=== PATIENT | female | born 1950 | race African-American/Black ===

== ENCOUNTER 2020-08-28 08:33 | Inpatient (IN) | payer OTHER ==
[2020-08-24 12:19] VITALS: BMI 26.6
--- NOTE | 2020-08-28 08:03 | HP ---
Satellite H - Chief Complaint Chief Complaint: left knee pain - Past Medical History Allergies/Adverse Reactions: Allergies Allergy/AdvReac Type Severity Reaction Status Date / Time codeine Allergy Severe Vomiting Verified 08/24/20 11:56 - Current Medications Current Medications: Home Medications Medication Instructions Recorded Albuterol Sulfate [Proair 90 mcg IH QID 08/27/20 Respiclick] Aspirin [ASA -] 81 mg PO DAILY 08/27/20 Calcium Citrate/Vitamin D3 1 each PO DAILY 08/27/20 [Calcium Citrate - Vit D Caplet] Cholecalciferol (Vitamin D3) 2,000 unit PO DAILY 08/27/20 [Vitamin D3] Docusate Sodium [Colace] 100 mg PO BID 08/27/20 Fluticasone Propionate [Flonase 15.8 ml NS DAILY 08/27/20 Allergy Relief] Fluticasone Propionate [Flovent 50 mcg IH DAILY 08/27/20 Diskus] Hydrochlorothiazide [Hctz -] 25 mg PO DAILY 08/27/20 Insulin Glargine,Hum.rec.anlog 20 unit SQ ACDIN 08/27/20 [Lantus Solostar] Insulin Lispro [Humalog] 10 unit SQ TID 08/27/20 Loratadine 10 mg PO DAILY 08/27/20 Meclizine HCl [Antivert -] 12.5 mg PO Q8H PRN 08/27/20 Pantoprazole Sodium 40 mg PO DAILY 08/27/20 Simvastatin 40 mg PO ACDIN 08/27/20 Satellite Physical Exam - Physical Examination General Appearance: Well Nourished, Well Developed, Alert & Oriented x3 ENT: Clear Lung: Normal air movement Extremities: Other (left knee- + swelling, + ttp, decr rom, nvi, xrays show grade 4 tricompartmental djd) Neurological: Intact, Alert, Oriented Satellite Impression/Plan - Impression/Plan Impression: left knee djd Operative Procedure: left jermaine tkr Date to be Performed: 08/28/20
--- OUTSIDE RECORDS SUMMARY | 2020-08-28 09:31 | XMS ---
:1950 Author Organization [facility] Support Name Relationship Address Phone UE Unavailable Unavailable Unavailable ATIF CHAHAL SON [address] [facility] [place] [address] Re-disclosure Warning The records that you are about to access may contain information from federally- assisted alcohol or drug abuse programs. If such information is present, then the following federally mandated warning applies: This information has been disclosed to you from records protected by federal confidentiality rules (42 CFR part 2). The federal rules prohibit you from making any further disclosure of this information unless further disclosure is expressly permitted by the written consent of the person to whom it pertains or as otherwise permitted by 42 CFR part 2. A general authorization for the release of medical or other information is NOT sufficient for this purpose. The Federal rules restrict any use of the information to criminally investigate or prosecute any alcohol or drug abuse patient.The records that you are about to access may contain highly sensitive health information, the redisclosure of which is protected by Article 27-F of the [facility] Public Health law. If you continue you may haveaccess to information: Regarding HIV / AIDS; Provided by facilities licensed or operated by the [facility] Office of Mental Health; or Provided by the [facility] Office for People With Developmental Disabilities. If such information is present, then the following [facility] mandated warning applies: This information has been disclosed to you from confidential records which are protected by state law. State law prohibits you from making any further disclosure of this information without the specific written consent of the person to whom it pertains, or as otherwise permitted by law. Any unauthorized further disclosure in violation of state law may result in a fine or halfway sentence or both. A general authorization for the release of medical or other information is NOT sufficient authorization for further disclosure. Insurance Providers Payer name Policy type Policy ID Covered Covered libertarian's Policy P sarita / Coverage libertarian ID relationship to Arce[employer] Inf ormation type arceo MEDICARE [id number] SP [id number] MEDICAID [id number] SP [id number] MEDICARE [id number] SP [id number] Results ID Date Data Source [id number] 08/24/2020 10:42:00 AM EDT [facility] Name Value Range Interpretation Description Data Sup porting Code Source(s) Document(s ) SARS [facility] coronavirus 2 RNA This lab was ordered by MICHEAL teixeira [facility] and reported by [facility]. ID Date Data Source [id number] 05/28/2020 12:00:00 AM EDT [facility] Name Value Range Interpretation Code Description Data Leann rce(s) Supporting Document(s ) SARS-CoV-2 [facility] RNA Resp Ql BETZY+probe This lab was ordered by [facility] and reported by [facility]. Procedure
[2020-08-28] MEDS: CELECOXIB 200 MG CAPSULE PO ONE (10:45)
[2020-08-28] MEDS ORDERED: SODIUM CHLORIDE 0.9% P/F 10 ML VIAL IJ ONE (11:20)
[2020-08-28] MEDS ORDERED: MIDAZOLAM HCL 2 MG/2 ML SINGLE DOSE VIAL ONE (11:20)
[2020-08-28] MEDS ORDERED: BUPIVACAINE LIPOSOME/PF (EXPAREL) 266 MG/20 ML VIAL ONE (11:20)
[2020-08-28] MEDS ORDERED: ceFAZolin SODIUM 1 GM VIAL ONE ×2 (11:58→12:51)
[2020-08-28] MEDS ORDERED: VANCOMYCIN 1,000 MG VIAL (RESTRICTED TO ID ONLY) ONE (11:58)
[2020-08-28] MEDS ORDERED: TRANEXAMIC ACID 1000 MG/10 ML VIAL IVPUSH ONE (12:00)
[2020-08-28] MEDS ORDERED: CEFAZOLIN 2 GM in DEXTROSE 5%-WATER - 50 ML IVPB ONE (12:00)
[2020-08-28] MEDS ORDERED: PROPOFOL 20 ML ONE (12:14)
[2020-08-28] MEDS ORDERED: MECLIZINE HCL 12.5 MG TABLET PO PRN (12:36)
[2020-08-28] MEDS ORDERED: ONDANSETRON 4 MG/2 ML VIAL IVPUSH PRN (12:37)
[2020-08-28] MEDS ORDERED: MAG HYDROX/AL HYDROX/SIMETH 30 ML UNIT-DOSE CUP PO PRN (12:37)
[2020-08-28] MEDS ORDERED: MAGNESIUM HYDROX 2400MG/30ML ORAL SUSPENSION 30 ML CUP PO PRN (12:37)
[2020-08-28] MEDS ORDERED: LACTATED RINGERS SOLUTION 1,000 ML IV SCH (12:45)
[2020-08-28] MEDS ORDERED: TRANEXAMIC ACID 1000 MG/10 ML VIAL ONE ×2 (12:51)
[2020-08-28] MEDS ORDERED: ALBUTEROL SO4 HFA INHALER IH PRN (13:04)
[2020-08-28] MEDS ORDERED: PATIENT'S OWN MEDICATION (NON-FORMULARY) (Insulin Lispro [Humalog] 10 UNIT) SQ SCH (14:00)
[2020-08-28] MEDS ORDERED: PATIENT'S OWN MEDICATION (NON-FORMULARY) (Albuterol Sulfate [Proair Respiclick] 90 MCG) IH SCH (14:00)
[2020-08-28] MEDS ORDERED: VANCOMYCIN 1,000 MG VIAL (RESTRICTED TO ID ONLY) IVPB ONE (14:03)
--- NOTE | 2020-08-28 14:30 | OP ---
Operative Note - Note: Operative Date: 08/28/20 (leana) Pre-Operative Diagnosis: left knee djd Operation: left jermaine tkr Post-Operative Diagnosis: Same as Pre-op Surgeon: Marquis Garland Pure Culture Operator: Tavares Salomon Anesthesia: Spinal, Local Specimens Removed: bone fragments Estimated Blood Loss (mls): 100
[2020-08-28] MEDS ORDERED: ONDANSETRON 4 MG/2 ML VIAL ONE (15:05)
[2020-08-28] MEDS: ACETAMINOPHEN 325 MG TABLET (FP) PO SCH ×2 (16:00→21:11)
[2020-08-28] MEDS: oxyCODONE HCL 5 MG TABLET PO PRN ×2 (16:00→21:11)
[2020-08-28] MEDS ORDERED: oxyCODONE HCL 5 MG TABLET ONE (16:01)
[2020-08-28] MEDS ORDERED: ACETAMINOPHEN 325 MG TABLET (FP) ONE (16:01)
[2020-08-28] MEDS ORDERED: PATIENT'S OWN MEDICATION (NON-FORMULARY) (Insulin Glargine,Hum.Rec.Anlog [Lantus Solostar] SQ SCH (16:30)
[2020-08-28] MEDS ORDERED: PATIENT'S OWN MEDICATION (NON-FORMULARY) (Simvastatin [Simvastatin] 40 MG) PO SCH (16:30)
[2020-08-28] MEDS: INSULIN (NOVOLOG) ASPART 100 UNITS/ML 10ML VIAL SQ SCH (17:04)
--- NOTE | 2020-08-28 17:37 | SPEC ---
DATE OF OPERATION: 08/28/2020 PREOPERATIVE DIAGNOSIS: Degenerative joint disease, left knee. POSTOPERATIVE DIAGNOSIS: Degenerative joint disease, left knee. PROCEDURE: Left total knee replacement with robotic-assisted navigation (Makoplasty). SURGICAL ATTENDING: Marquis Garland MD. ANESTHESIA: Regional and spinal. CLOSURE: Triathlon knee system with a 4 femur, 4 tibia, a 9 polyethylene, 32 patella, number 1 Vicryl fascia, 0 and 2-0 subcutaneous, 3-0 Monocryl subcuticular with skin glue for skin, 4-0 undyed Vicryl for pin site. ESTIMATED BLOOD LOSS: Less than 100 mL. COMPLICATIONS: None. CONDITION: To recovery room in stable condition. DESCRIPTION OF OPERATIVE PROCEDURE: Patient was taken to the operating room on August 28, 2020. Regional and general anesthesia was administered by the anesthesiologist. IV Kefzol and TXA were administered by the anesthesiologist. Well-padded pneumatic tourniquet was placed on the proximal thigh. The left lower extremity was prepped and draped in the usual sterile fashion. The leg was exsanguinated with an Esmarch bandage, and tourniquet was inflated to 275 mmHg. A 12 to 15-cm longitudinal midline incision was incised while centered over the patella. The dissection was carried down to the level of the extensor mechanism with sufficient flaps made to adequately perform the procedure. A medial parapatellar arthrotomy was then performed. We made a cuff of tissue on the patella for later closure. The patella was inverted, the knee was flexed up. The fat pad was excised. The subperiosteal dissection was on the anteromedial proximal tibia around towards the direction of the MCL. The ACL and the PCL were transected and debrided. The meniscal remnants of the medial and lateral meniscus were debrided and removed. This allowed the knee to be able to "be brought forward." The checkpoints were malleted into the tibia and into the femur. Two threaded pins were drilled anteroposteriorly proximal to the knee through the previous incision, through the anterior cortex, then just engaging the posterior cortex. To these pins was assembled the femoral navigation array. One handbreadth below the tibial tubercle, 2 stab incisions were used to drill 2 threaded pins in parallel fashion into the tibia, again through the anterior cortex and just engaging the posterior cortex. To these pins was fastened the tibial arrays. The knee was then registered with the navigation device with center of rotation of the hip, medial and lateral malleoli, both checkpoints, and multiple points on both the femur and the tibia to ensure excellent registration. The navigation device was directed off the "top of the bubbles" on both the femur and the tibia. The navigation passed within less than 0.5 mm to plan. The knee was then thoroughly inspected to remove all osteophytes both medially, laterally, and on the femur and the tibia, and whatever osteophytes were available for dissection. The knee was then taken to extension and to flexion, and stressed in both varus and valgus to assess flexion gaps. The virtual position of the components on the navigation device were then manipulated to optimize the position and to ensure equal gaps in both flexion and extension, and both medially and laterally. The robot was then brought into the field and was registered. The cuts were then made both on the femur and on the tibia as to plan. All osteophytes posteriorly were then removed as well. The gaps were then measured again in flexion and extension to be equal in both flexion and extension and medial and laterally. The femoral notch was then made, as we were doing a posterior stabilizing component, with the appropriate sized box. Trial reduction of the femur achieved excellent [id number] fit. A tibial baseplate of appropriate polyethylene thickness was "floated in the knee." It was ensured to be in the excellent position by navigation devices and was pinned in place. The knee was taken through a range of motion, and found to have excellent stability throughout flexion and extension. The patella was calibrated for thickness and osteotomized down to the appropriate level. The appropriate lollipop was used to drill the lug holes in the patella and the trial button was applied. The knee was taken through a range of motion and found to have excellent tracking of the patella, and patella from full extension to full flexion. Trial components were removed, the keel was punched and drilled, and a sclerotic bone on the tibia was drilled to help with cement interdigitation. The knee was thoroughly irrigated with the pulse antibiotic gate person. The real components were then cemented in using monitored arrangement cement techniques with antibiotic cement, and pressurization and extension. After the cement was hardened, the knee was thoroughly inspected to remove any extra cement. The real polyethylene component was then clipped into place. Range of motion, stability, and tracking were as described earlier. The checkpoints and the pins were removed. The knee was thoroughly irrigated with antibiotic irrigation. Vancomycin powder was placed into the knee for antibiotic prophylaxis. The medial parapatellar arthrotomy was then closed using number 1 Vicryl interrupted suture. After closure of the deep layer, the knee was taken through a range of motion, and found to have excellent stability of the patella with no dislocation and no undue tension on the repair. The subcutaneous was pulse antibiotic irrigated, and was then closed with 2-0 Vicryl, 3-0 Monocryl subcuticular with the skin glue for the skin. The distal tibial pin site was irrigated thoroughly as well and then closed with 4-0 undyed Vicryl. A sterile Aquacel dressing was applied, followed by a Paz dressing. Tourniquet was deflated. Total tourniquet time was approximately 75 minutes. No complications. Patient was awakened from anesthesia and transferred to recovery room in stable condition. Postoperative x-rays revealed excellent position of the components. Salima [id number]
--- NOTE | 2020-08-28 18:07 | CONSULT ---
Consult - Past Medical History ORNAMENTAL IRON ERECTOR: Yes: CVA Cardio/Vascular: Yes: HTN, Hyperlipdemia Endocrine: Yes: Diabetes Mellitus - Smoking History Smoking history: Never smoked Have you smoked in the past 12 months: No Home Medications - Allergies Allergies/Adverse Reactions: Allergies Allergy/AdvReac Type Severity Reaction Status Date / Time codeine Allergy Severe Vomiting Verified 08/24/20 11:56 - Home Medications Home Medications: Ambulatory Orders Albuterol Sulfate [Proair Respiclick] 90 mcg IH QID 08/27/20 Aspirin [ASA -] 81 mg PO DAILY 08/27/20 Calcium Citrate/Vitamin D3 [Calcium Citrate - Vit D Caplet] 1 each PO DAILY 08/27/20 Cholecalciferol (Vitamin D3) [Vitamin D3] 2,000 unit PO DAILY 08/27/20 Docusate Sodium [Colace] 100 mg PO BID 08/27/20 Fluticasone Propionate [Flonase Allergy Relief] 15.8 ml NS DAILY 08/27/20 Fluticasone Propionate [Flovent Diskus] 50 mcg IH DAILY 08/27/20 Hydrochlorothiazide [Hctz -] 25 mg PO DAILY 08/27/20 Insulin Glargine,Hum.rec.anlog [Lantus Solostar] 20 unit SQ ACDIN 08/27/20 Insulin Lispro [Humalog] 10 unit SQ TID 08/27/20 Loratadine 10 mg PO DAILY 08/27/20 Meclizine HCl [Antivert -] 12.5 mg PO Q8H PRN 08/27/20 Pantoprazole Sodium 40 mg PO DAILY 08/27/20 Simvastatin 40 mg PO ACDIN 08/27/20 Review of Systems - Review of Systems Neck: reports: No Symptoms Cardiovascular: reports: No Symptoms Respiratory: reports: No Symptoms Genitourinary: reports: No Symptoms Musculoskeletal: reports: Joint Pain Physical Exam Vital Signs: Vital Signs Temperature 98.5 F 08/28/20 16:37 Pulse Rate 90 08/28/20 16:37 Respiratory Rate 18 08/28/20 16:37 Blood Pressure 155/78 08/28/20 16:37 O2 Sat by Pulse Oximetry (%) 100 08/28/20 16:37 Cardiovascular: Yes: Regular Rate and Rhythm Respiratory: Yes: Regular, CTA Bilaterally Gastrointestinal: Yes: Normal Bowel Sounds, Soft. No: Tenderness Edema: No Problem List - Problems (1) S/P knee surgery Assessment/Plan: Operative Date: 08/28/20 (leana) Pre-Operative Diagnosis: left knee djd Operation: left jermaine tkr Post-Operative Diagnosis: Same as Pre-op Surgeon: Marquis Garland Western Felt Hat Blocker: Tavares Salomon (2) HTN (hypertension) Assessment/Plan: controlled monitor trends Code(s): I10 - ESSENTIAL (PRIMARY) HYPERTENSION (3) Diabetes Assessment/Plan: continue with insulin ss Code(s): E11.9 - TYPE 2 DIABETES MELLITUS WITHOUT COMPLICATIONS (4) HLD (hyperlipidemia) Assessment/Plan: same meds Code(s): E78.5 - HYPERLIPIDEMIA, UNSPECIFIED
[2020-08-28] MEDS: CEFAZOLIN 2 GM/D5W 2 GM/50 ML ML IVPB SCH (21:10)
[2020-08-28] MEDS: DOCUSATE SODIUM 100 MG CAPSULE (FP) PO SCH (21:11)
[2020-08-29] MEDS: MOMETASONE FUROATE 110 MCG/IH INHALER IH SCH ×2 (00:13→21:37)
[2020-08-29] MEDS ORDERED: PT OWN MED DRAWER 7, Y5N ONE ×3 (00:21→11:54)
[2020-08-29] MEDS: ACETAMINOPHEN 325 MG TABLET (FP) PO SCH ×4 (01:39→20:36)
[2020-08-29] MEDS: CEFAZOLIN 2 GM/D5W 2 GM/50 ML ML IVPB SCH (03:18)
[2020-08-29] MEDS: oxyCODONE HCL 5 MG TABLET PO PRN ×5 (06:40→21:00)
[2020-08-29] MEDS: CELECOXIB 200 MG CAPSULE PO ONE (07:20)
[2020-08-29] MEDS: INSULIN (LEVEMIR) 100 UNITS/ML UNITS SQ SCH ×2 (07:21→16:22)
[2020-08-29] MEDS: ATORVASTATIN CA 20 MG TABLET (FP) PO SCH ×2 (07:21→16:22)
[2020-08-29] MEDS: ASPIRIN 325 MG TABLET PO SCH (07:59)
[2020-08-29] MEDS: INSULIN (NOVOLOG) ASPART 100 UNITS/ML 10ML VIAL SQ SCH ×3 (08:01→16:22)
[2020-08-29 08:20] LABS: HEMATOCRIT 40.9 % (32.4-45.2); HEMOGLOBIN 14.2 GM/dl (10.7-15.3); MCH 32.6 pg (25.7-33.7); MCHC 34.6 g/dl (32.0-36.0); MEAN CELL VOLUME 94.1 fl (80-96); MEAN PLT VOLUME 7.3 fl (7.5-11.1); PLATELET COUNT 250 K/MM3 (134-434); RBC 4.35 M/mm3 (3.60-5.2); RDW 11.9 % (11.6-15.6)
[2020-08-29] MEDS: DOCUSATE SODIUM 100 MG CAPSULE (FP) PO SCH ×2 (09:23→21:37)
[2020-08-29] MEDS: MULTIVITAMINS (DAILY MVI) TABLET (FP) PO SCH (09:23)
[2020-08-29] MEDS: HYDROCHLOROTHIAZIDE 25 MG TABLET (FP) PO SCH (09:23)
[2020-08-29] MEDS: PANTOPRAZOLE 40 MG TABLET PO SCH (09:23)
[2020-08-29] MEDS: LORATADINE 10 MG TABLET PO SCH (09:23)
[2020-08-29] MEDS ORDERED: PATIENT'S OWN MEDICATION (NON-FORMULARY) (Fluticasone Propionate [Flovent Diskus] 50 MCG) IH SCH (10:00)
--- NOTE | 2020-08-29 10:58 | PN ---
Progress Note (short form) - Note Progress Note: Ortho Pt seen and examined s/p left jermaine tkr pod #1 Selected Entries 08/29/20 09:39 Temperature 98.0 F Pulse Rate 92 H Respiratory 17 Rate Blood Pressure 169/63 Laboratory Tests 08/29/20 07:13 WBC 10.0 Hgb 14.2 Hct 40.9 Plt Count 250 dressing saturated to borders, rom 0-40, calf soft, nt nvi a/p Dressing changed PT dvt ppx pain control d/c planning for rehab/snf
--- NOTE | 2020-08-29 11:52 | PN ---
Progress Note, Physician - Current Medication List Current Medications: Active Medications Acetaminophen (Tylenol -) 650 mg PO Q6H COUNT INCLUDES THE [facility] Stop: 08/31/20 13:59 Last Admin: 08/29/20 08:00 Dose: 650 mg Documented by: Al Hydroxide/Mg Hydroxide (Mylanta Oral Suspension -) 30 ml PO Q4H PRN PRN Reason: DYSPEPSIA Albuterol Sulfate (Ventolin Hfa Inhaler -) 2 puff IH QID PRN PRN Reason: SHORTNESS OF BREATH Aspirin (Asa -) 325 mg PO DAILY@0800 COUNT INCLUDES THE [facility] Last Admin: 08/29/20 07:59 Dose: 325 mg Documented by: Atorvastatin Calcium (Lipitor -) 20 mg PO ACDIN COUNT INCLUDES THE [facility] Last Admin: 08/29/20 07:21 Dose: Not Given Documented by: Docusate Sodium (Colace -) 100 mg PO BID COUNT INCLUDES THE [facility] Last Admin: 08/29/20 09:23 Dose: 100 mg Documented by: Fluticasone Propionate (Flonase -) 2 spray NS DAILY COUNT INCLUDES THE [facility] Hydrochlorothiazide (Hctz -) 25 mg PO DAILY COUNT INCLUDES THE [facility] Last Admin: 08/29/20 09:23 Dose: 25 mg Documented by: Insulin Aspart (Novolog Vial) 10 units SQ TIDAC COUNT INCLUDES THE [facility] Last Admin: 08/29/20 08:01 Dose: 10 units Documented by: Insulin Detemir (Levemir Vial) 20 units SQ ACDIN COUNT INCLUDES THE [facility] Last Admin: 08/29/20 07:21 Dose: Not Given Documented by: Loratadine (Claritin -) 10 mg PO DAILY COUNT INCLUDES THE [facility] Last Admin: 08/29/20 09:23 Dose: 10 mg Documented by: Magnesium Hydroxide (Milk Of Magnesia -) 30 ml PO PRN PRN PRN Reason: CONSTIPATION Meclizine HCl (Antivert -) 12.5 mg PO Q8H PRN PRN Reason: VERTIGO Mometasone Furoate (Asmanex 110mcg -) 1 puff IH HS COUNT INCLUDES THE [facility] Last Admin: 08/29/20 00:13 Dose: 1 puff Documented by: Multivitamins/Minerals/Vitamin C (Tab-A-Vit -) 1 tab PO DAILY COUNT INCLUDES THE [facility] Last Admin: 08/29/20 09:23 Dose: 1 tab Documented by: Ondansetron HCl (Zofran Injection) 4 mg IVPUSH Q6H PRN PRN Reason: NAUSEA Last Admin: 08/28/20 15:10 Dose: 4 mg Documented by: Oxycodone HCl (Roxicodone -) 5 mg PO Q3H PRN PRN Reason: PAIN LEVEL 1-5 Last Admin: 08/29/20 09:24 Dose: 5 mg Documented by: Oxycodone HCl (Roxicodone -) 10 mg PO Q3H PRN PRN Reason: PAIN LEVEL 6-10 Pantoprazole Sodium (Protonix -) 40 mg PO DAILY PB Last Admin: 08/29/20 09:23 Dose: 40 mg Documented by: - Objective Vital Signs: Vital Signs Temperature 98.0 F 08/29/20 09:39 Pulse Rate 92 H 08/29/20 09:39 Respiratory Rate 17 08/29/20 09:39 Blood Pressure 169/63 08/29/20 09:39 O2 Sat by Pulse Oximetry (%) 98 08/29/20 09:39 Cardiovascular: Yes: Regular Rate and Rhythm Respiratory: Yes: Regular, CTA Bilaterally Gastrointestinal: Yes: Normal Bowel Sounds, Soft Labs: CBC, BMP 08/29/20 07:13 Problem List - Problems (1) S/P knee surgery Assessment/Plan: Operative Date: 08/28/20 (leana) Pre-Operative Diagnosis: left knee djd Operation: left jermaine tkr Post-Operative Diagnosis: Same as Pre-op Surgeon: Marquis Garland Livestock Dealer: Tavares Salomon PT Rehab placement (2) HTN (hypertension) Assessment/Plan: controlled monitor trends Vital Signs Period Temp Pulse Resp BP Sys/Ureña Pulse Ox Last 24 Hr 98.0 F-99.1 F 85-103 17-23 113-169/63-80 97-100 Code(s): I10 - ESSENTIAL (PRIMARY) HYPERTENSION (3) Diabetes Assessment/Plan: continue with insulin ss Laboratory Tests 08/28/20 08/29/20 08/29/20 16:12 06:24 11:15 POC Glucometer 103 242 245 Code(s): E11.9 - TYPE 2 DIABETES MELLITUS WITHOUT COMPLICATIONS (4) HLD (hyperlipidemia) Assessment/Plan: same meds Code(s): E78.5 - HYPERLIPIDEMIA, UNSPECIFIED
[2020-08-29] MEDS: FLUTICASONE PROP 0.05% 16 GM NASAL SPRAY NS SCH (11:55)
--- NOTE | 2020-08-29 13:49 | PN ---
Progress Note (short form) - Note Progress Note: Anesthesia postop note 69 y/o F s/p spinal anesthesia/nerve blocks for jermaine knee replacement. POD#1, vss, aaox3, pain fairly well controlled, undergoing PT now for the second time today. No anesthesia complications.
[2020-08-30] MEDS: ACETAMINOPHEN 325 MG TABLET (FP) PO SCH ×3 (02:12→13:59)
[2020-08-30] MEDS: INSULIN (NOVOLOG) ASPART 100 UNITS/ML 10ML VIAL SQ SCH ×2 (06:33→13:58)
[2020-08-30 08:07] LABS: HEMATOCRIT 38.7 % (32.4-45.2); HEMOGLOBIN 13.3 GM/dl (10.7-15.3); MCH 32.5 pg (25.7-33.7); MCHC 34.3 g/dl (32.0-36.0); MEAN CELL VOLUME 94.7 fl (80-96); MEAN PLT VOLUME 7.5 fl (7.5-11.1); PLATELET COUNT 271 K/MM3 (134-434); RBC 4.08 M/mm3 (3.60-5.2); RDW 11.9 % (11.6-15.6); WHITE BLOOD COUNT 12.2 K/mm3 (4.0-10.8)
--- NOTE | 2020-08-30 08:30 | PN ---
Progress Note (short form) - Note Progress Note: Ortho Pt seen and examined s/p left jermaine tkr pod #2 Selected Entries 08/30/20 06:00 Temperature 98.2 F Pulse Rate 103 H Respiratory 18 Rate Blood Pressure 137/66 Laboratory Tests 08/30/20 07:29 WBC 12.2 H Hgb 13.3 Hct 38.7 Plt Count 271 dressing c/d/i, rom 0-40, calf soft, nt nvi a/p PT dvt ppx pain control d/c planning for rehab/snf
[2020-08-30] MEDS ORDERED: PT OWN MED DRAWER 7, Y5N ONE (09:22)
[2020-08-30] MEDS: ASPIRIN 325 MG TABLET PO SCH (09:25)
[2020-08-30] MEDS: MULTIVITAMINS (DAILY MVI) TABLET (FP) PO SCH (09:25)
[2020-08-30] MEDS: DOCUSATE SODIUM 100 MG CAPSULE (FP) PO SCH (09:25)
[2020-08-30] MEDS: PANTOPRAZOLE 40 MG TABLET PO SCH (09:25)
[2020-08-30] MEDS: HYDROCHLOROTHIAZIDE 25 MG TABLET (FP) PO SCH (09:26)
[2020-08-30] MEDS: LORATADINE 10 MG TABLET PO SCH (09:26)
[2020-08-30] MEDS: FLUTICASONE PROP 0.05% 16 GM NASAL SPRAY NS SCH (09:26)
[2020-08-30] MEDS: oxyCODONE HCL 5 MG TABLET PO PRN (09:27)
[2020-08-30 09:47] VITALS: BP 144/62; PULSE 114; TEMP 99.3
--- NOTE | 2020-08-30 12:47 | DS ---
Physical Examination Vital Signs: Vital Signs Temperature 99.3 F 08/30/20 09:47 Pulse Rate 114 H 08/30/20 09:47 Respiratory Rate 17 08/30/20 09:47 Blood Pressure 144/62 08/30/20 09:47 O2 Sat by Pulse Oximetry (%) 92 L 08/30/20 09:47 Labs: CBC, BMP 08/30/20 07:29 Discharge Summary Problems reviewed: Yes Reason For Visit: OSTEOARTHRITIS Current Active Problems Diabetes (Acute) HLD (hyperlipidemia) (Acute) HTN (hypertension) (Acute) S/P knee surgery (Acute) Procedures: Principal: left tkr Hospital Course: admitted for elective left jermaine tkr, post-op per protocol, stable for d/c Condition: Good - Instructions Diet, Activity, Other Instructions: Post-op Instructions-Total Knee Replacement Call the office for a follow-up appointment in 1 week - [phone] Aspirin 325mg daily for 6 weeks. Apply Graduated Compression Stockings (TEDs) to both lower extremities- remove daily for hygiene ONLY Apply Sequential Compression Device (SCDs) to both Lower extremities remove for PT and hygiene ONLY Apply cold packs to affected area for 15 minutes every 2 hours. Physical Therapist will come to your home for the first 5 days. You will be set up with outpatient PT at your first post-operative visit. Patient may ambulate as tolerated-encourage self care (at least every 2-3 hours while awake) with walker or cane Keep dressing dry and intact. CONTACT THE OFFICE FOR ANY CHANGE IN YOUR CONDITION (for example-fever greater than 102 degrees, excessive bleeding from operative site, purulent drainage, severe swelling or pain) GO TO THE EMERGENCY ROOM IF THERE IS A MEDICAL EMERGENCY Knee Precautions: * Keep a rolled towel under affected heel while in bed or chair (to keep knee in extension) * Keep affected leg elevated except during mealtimes * DO NOT PLACE PILLOW UNDER AFFECTED KNEE * If you have any questions, please do not hesitate to call the office - [phone]. Referrals: Marquis Garland MD [Staff Physician] - Disposition: VNS/HOME HEALTH CARE - Home Medications Comprehensive Discharge Medication List: Ambulatory Orders Albuterol Sulfate [Proair Respiclick] 90 mcg IH QID 08/27/20 Calcium Citrate/Vitamin D3 [Calcium Citrate - Vit D Caplet] 1 each PO DAILY 08/27/20 Cholecalciferol (Vitamin D3) [Vitamin D3] 2,000 unit PO DAILY 08/27/20 Docusate Sodium [Colace] 100 mg PO BID 08/27/20 Fluticasone Propionate [Flonase Allergy Relief] 15.8 ml NS DAILY 08/27/20 Fluticasone Propionate [Flovent Diskus] 50 mcg IH DAILY 08/27/20 Hydrochlorothiazide [Hctz -] 25 mg PO DAILY 08/27/20 Insulin Glargine,Hum.rec.anlog [Lantus Solostar] 20 unit SQ ACDIN 08/27/20 Insulin Lispro [Humalog] 10 unit SQ TID 08/27/20 Loratadine 10 mg PO DAILY 08/27/20 Meclizine HCl [Antivert -] 12.5 mg PO Q8H PRN 08/27/20 Pantoprazole Sodium 40 mg PO DAILY 08/27/20 Simvastatin 40 mg PO ACDIN 08/27/20 Aspirin [ASA -] 325 mg PO DAILY@0800 tablet 08/30/20 oxyCODONE HCL [Roxicodone -] 5 mg PO Q3H PRN tablet 08/30/20
--- NOTE | 2020-08-30 16:07 | PATH ---
Surgical Pathology Report Patient Name: PEDRO CHAHAL Med. Rec. #: [id number] /Age/Gender: 1950 (Age: 69) / F Account: [id number] Location: [facility] Taken: 08/28/2020 Received: 08/28/2020 Reported: 08/30/2020 Physicians: Marquis Garland M.D. Specimen(s) Received LEFT KNEE BONES Clinical History Left knee osteoarthritis Final Diagnosis LEFT KNEE BONES, LEFT TOTAL KNEE REPLACEMENT: DEGENERATIVE JOINT DISEASE, LEFT KNEE. Electronically Signed Leoncio Peters M.D. Gross Description Received in formalin labeled "left knee bones," is a 13.0 x 10.5 x 2.0 cm aggregate of multiple collier-yellow portion of bone and soft tissue. The tibial plateau measures 7.4 x 4.8 x 1.9 cm. There is a 1.0 cm in greatest dimension area of eburnation present. The remaining articular surfaces are collier-yellow and diffusely granular. The underlying trabecular bone is yellow and hard. Computer Software Engineer sections are submitted in one cassette, following decalcification. /08/29/2020 [facility]08/29/2020
== END 2020-08-30 14:18 | DRG 470 ==
LOC: FM/S 09:29
PROVIDERS: ADMIT Orthopaedic Surgery; ATTEND Orthopaedic Surgery
PROC: 8E0Y0CZ Robotic Assisted Procedure of Lower Extremity, Open Approach (ICD-10-PCS; 2020-08-28)
PROC: 0SRD0J9 Replacement of Left Knee Joint with Synthetic Substitute, Cemented, Open Approach (ICD-10-PCS; principal; 2020-08-28 13:02)
DX: M17.12 Unilateral primary osteoarthritis, left knee (principal); E11.9 Type 2 diabetes mellitus without complications; E78.5 Hyperlipidemia, unspecified; I10 Essential (primary) hypertension
CPT/HCPCS: 36415; 73560-TC-LT-FY; 82962; 85027; 88304-TC; 88311-TC; 94760; 97010-GP; 97116-GP; 97163-GP